=== PATIENT | male | born 1975 | race Two or more races ===

== ENCOUNTER 2020-09-30 07:37 | Emergency (ER) | payer SELFPAY ==
[2020-09-30] MEDS ORDERED: Ketorolac 15 MG/ML SDV IVPUSH ONE (08:09)
[2020-09-30] MEDS ORDERED: Sodium Chloride 0.9% 1,000 ML IV ONE (08:09)
[2020-09-30] MEDS ORDERED: Ondansetron 4 MG/2 ML SDV IVPUSH ONE (08:09)
--- NOTE | 2020-09-30 08:12 | EDM.PDOC ---
ED HPI GENERAL MEDICAL PROBLEM - General Chief Complaint: Abdominal Pain Stated Complaint: SIDE PAIN Time Seen by Provider: 09/30/20 07:49 - History of Present Illness INITIAL COMMENTS - FREE TEXT/NARRATIVE: 45-year-old male presents to the emergency department complaining of of right- sided abdominal pain. Patient has had kidney stones 2-3 times in the past. The pain started this morning. Nausea and vomiting. No diarrhea. No fevers. No cough or productive sputum. No Covid contacts. Moderate discomfort without exacerbating or alleviating factors. RUQ Pain Score (Numeric/FACES): 6 - Related Data Allergies Allergy/AdvReac Type Severity Reaction Status Date / Time No Known Allergies Allergy Verified 09/30/20 07:59 Home Meds: Home Meds Acetaminophen/oxyCODONE [Percocet 325-5 MG] 1 each PO Q6HR #12 tab 09/30/20 [Rx] Ibuprofen [Motrin] 600 mg PO Q6H PRN #20 tab 09/30/20 [Rx] Ondansetron [Zofran ODT] 4 mg PO Q6H PRN #15 tab.dis 09/30/20 [Rx] Tamsulosin HCl [Flomax] 0.4 mg PO DAILY #10 cap.er.24h 09/30/20 [Rx] Past Medical History - Past Health History Medical/Surgical History: Denies Medical/Surgical History HEENT History: Reports: None Cardiovascular History: Reports: None Respiratory History: Reports: None Gastrointestinal History: Reports: None Genitourinary History: Reports: None Musculoskeletal History: Reports: None Neurological History: Reports: None Psychiatric History: Reports: None Endocrine/Metabolic History: Reports: None Hematologic History: Reports: None Immunologic History: Reports: None Oncologic (Cancer) History: Reports: None Dermatologic History: Reports: None - Infectious Disease History Infectious Disease History: Reports: None - Past Surgical History Head Surgeries/Procedures: Reports: None Social & Family History - Family History Family Medical History: No Pertinent Family History - Tobacco Use Tobacco Use Status *Q: Never Tobacco User - Recreational Drug Use Recreational Drug Use: No ED ROS GENERAL - Review of Systems Review Of Systems: See Below Constitutional: Denies: Fever Respiratory: Denies: Shortness of Breath, Cough Cardiovascular: Denies: Chest Pain GI/Abdominal: Reports: Abdominal Pain, Vomiting : Denies: Dysuria Skin: Denies: Rash Neurological: Reports: No Symptoms Hematologic/Lymphatic: Reports: No Symptoms ED EXAM, GENERAL - Physical Exam Exam: See Below Free Text/Narrative:: CONSTITUTIONAL: well appearing in no acute distress SKIN: dry, and intact without rash HENT: Normocephalic, atraumatic, NECK: normal range of motion PULMONARY: normal chest rise and fall, no respiratory distress or stridor Abdominal: Patient points to the right mid abdomen where the pain is but there is no marked reproducible tenderness. No flank tenderness NEUROLOGIC: normal speech, moves all extremities, grossly non-focal MUSCULOSKELETAL: no gross deformities, atraumatic PSYCHIATRIC: normal mood and affect Course - Vital Signs Text/Narrative:: Differential diagnosis: Kidney stone, appendicitis, acute cholecystitis, pancreatitis, pyelonephritis, other Presents with abdominal pain. He is evidence of a distal small UVJ stone. No evidence of infection. The base is somewhat elevated. There is no CT evidence of pancreatitis in the patient's pain distribution is more consistent with kidney stone which is objectively seen on CT scan. Patient had this discussed and he can have repeat levels tested as an outpatient. Otherwise Flomax with pain management antinausea medications and hopefully the proximal pass on its own given the size and location. Patient instructed they will need to follow-up with urologist if there is any lack of the stone passing on its own and or fevers develop Last Recorded V/S: Last Vital Signs Temp 35.9 C L 09/30/20 07:59 Pulse 71 09/30/20 10:54 Resp 20 09/30/20 07:59 BP 160/78 H 09/30/20 10:54 Pulse Ox 98 09/30/20 10:54 - Orders/Labs/Meds Labs: Laboratory Tests 09/30/20 09/30/20 09/30/20 Range/Units 08:00 08:00 08:39 WBC 7.33 (4.0-11.0) K/uL RBC 5.29 (4.50-5.90) M/uL Hgb 15.9 (13.0-17.0) g/dL Hct 46.5 (38.0-50.0) % MCV 87.9 (80.0-98.0) fL MCH 30.1 (27.0-32.0) pg MCHC 34.2 (31.0-37.0) g/dL RDW Std Deviation 40.8 (28.0-62.0) fl RDW Coeff of Caitlin 13 (11.0-15.0) % Plt Count 156 (150-400) K/uL MPV 9.70 (7.40-12.00) fL Neut % (Auto) 78.9 (48.0-80.0) % Lymph % (Auto) 14.5 L (16.0-40.0) % Major % (Auto) 5.5 (0.0-15.0) % Eos % (Auto) 0.8 (0.0-7.0) % Baso % (Auto) 0.3 (0.0-1.5) % Neut # (Auto) 5.8 H (1.4-5.7) K/uL Lymph # (Auto) 1.1 (0.6-2.4) K/uL Major # (Auto) 0.4 (0.0-0.8) K/uL Eos # (Auto) 0.1 (0.0-0.7) K/uL Baso # (Auto) 0.0 (0.0-0.1) K/uL Nucleated RBC % 0.0 /100WBC Nucleated RBCs # 0 K/uL Sodium 138 (136-148) mmol/L Potassium 4.0 (3.5-5.1) mmol/L Chloride 103 (98-107) mmol/L Carbon Dioxide 26.3 (21.0-32.0) mmol/L BUN 17 (7.0-18.0) mg/dL Creatinine 1.4 H (0.8-1.3) mg/dL Est Cr Clr Drug Dosing 74.94 mL/min Estimated GFR (MDRD) 54.8 ml/min Glucose 147 H (74-106) mg/dL Calcium 8.2 L (8.5-10.1) mg/dL Total Bilirubin 1.1 H (0.2-1.0) mg/dL AST 36 (15-37) IU/L ALT 92 H (14-63) IU/L Alkaline Phosphatase 77 (46-116) U/L Total Protein 7.1 (6.4-8.2) g/dL Albumin 4.1 (3.4-5.0) g/dL Globulin 3.0 (2.6-4.0) g/dL Albumin/Globulin Ratio 1.4 (0.9-1.6) Lipase 632 H (73-393) U/L Urine Color YELLOW Urine Appearance CLEAR Urine pH 7.0 (5.0-8.0) Ur Specific [place] 1.015 (1.001-1.035) Urine Protein NEGATIVE (NEGATIVE) mg/dL Urine Glucose (UA) NEGATIVE (NEGATIVE) mg/dL Urine Ketones NEGATIVE (NEGATIVE) mg/dL Urine Occult Blood NEGATIVE (NEGATIVE) Urine Nitrite NEGATIVE (NEGATIVE) Urine Bilirubin NEGATIVE (NEGATIVE) Urine Urobilinogen 0.2 (<2.0) EU/dL Ur Leukocyte Esterase NEGATIVE (NEGATIVE) Meds: Medications Discontinued Medications Generic Name Dose Route Start Last Admin Trade Name Freq PRN Reason Stop Dose Admin Sodium Chloride 1,000 mls @ 999 mls/hr 09/30/20 08:09 09/30/20 08:13 Normal Saline IV 09/30/20 09:09 999 mls/hr .BOLUS ONE Administration Ketorolac Tromethamine 30 mg 09/30/20 08:09 09/30/20 08:21 Ketorolac 15 Mg/Ml Sdv IVPUSH 09/30/20 08:10 Not Given ONETIME ONE Ketorolac Tromethamine 30 mg 09/30/20 08:20 09/30/20 08:21 Ketorolac 30 Mg/Ml Sdv IVPUSH 09/30/20 08:21 30 mg ONETIME ONE Administration Ketorolac Tromethamine Confirm 09/30/20 08:18 09/30/20 09:35 Ketorolac 30 Mg/Ml Sdv Administered 09/30/20 08:19 Not Given Dose 30 mg .ROUTE .STK-MED ONE Ondansetron HCl 4 mg 09/30/20 08:09 09/30/20 08:20 Ondansetron 4 Mg/2 Ml Sdv IVPUSH 09/30/20 08:10 4 mg ONETIME ONE Administration Ondansetron HCl Confirm 09/30/20 08:17 09/30/20 09:35 Ondansetron 4 Mg/2 Ml Sdv Administered 09/30/20 08:18 Not Given Dose 4 mg .ROUTE .STK-MED ONE Departure - Departure Time of Disposition: 11:13 Disposition: Home, Self-Care 01 Condition: Good Clinical Impression: Kidney stone on right side - Discharge Information Prescriptions: Tamsulosin HCl [Flomax] 0.4 mg PO DAILY #10 cap.er.24h Ibuprofen [Motrin] 600 mg PO Q6H PRN #20 tab PRN Reason: Pain Acetaminophen/oxyCODONE [Percocet 325-5 MG] 1 each PO Q6HR #12 tab Ondansetron [Zofran ODT] 4 mg PO Q6H PRN #15 tab.dis PRN Reason: Nausea Instructions: Kidney Stones, [id number] Referrals: PCP,None [Primary Care Provider] - Forms: ED Department Discharge Additional Instructions: Take Flomax to help passage of the stone. Zofran for vomiting. Ibuprofen for pain. You can use the oxycodone acetaminophen for breakthrough pain if you cannot be controlled with ibuprofen. Return for fevers or pain with urination or worsening pain or inability to tolerate fluids. Follow-up with urology in 1 week if symptoms still persist Sepsis Event Note (ED) - Evaluation Sepsis Screening Result: No Definite Risk - Focused Exam Vital Signs: Vital Signs Temp Pulse Resp BP BP Pulse Ox 09/30/20 10:54 71 160/78 H 98 09/30/20 10:21 88 158/80 H 99 09/30/20 09:51 63 158/83 H 97 09/30/20 09:22 65 151/92 H 97 09/30/20 08:52 66 136/94 H 98 09/30/20 08:21 70 145/98 H 100 09/30/20 07:59 35.9 C L 72 20 153/103 H 148/121 H 98
[2020-09-30] MEDS ORDERED: Ondansetron 4 MG/2 ML SDV ONE (08:17)
[2020-09-30] MEDS ORDERED: Ketorolac 30 MG/ML SDV ONE (08:18)
[2020-09-30] MEDS ORDERED: Ketorolac 30 MG/ML SDV IVPUSH ONE (08:20)
[2020-09-30 08:40] LABS: CARBON DIOXIDE,CO2 26.3 mmol/L (21.0-32.0)
--- NOTE | 2020-09-30 10:49 | CT ---
Indication: Abdominal pain Technique: Volumetric multidetector CT images of the abdomen and pelvis were obtained after the administration of intravenous contrast. 75 cc Isovue 370 low osmolar intravenous contrast Comparison: None available. Findings: There is basilar atelectasis versus scar. The liver is normal in attenuation without intrahepatic biliary ductal dilatation. The portal vein is patent. The gallbladder is unremarkable without evidence of radiopaque calculus. There is no significant common biliary ductal dilatation or abrupt cut off. The spleen is normal in enhancement and size. The stomach and duodenum are grossly unremarkable. The pancreas is normal in enhancement without significant atrophy. The adrenal glands are unremarkable. There is right-sided hydronephrosis and hydroureter with a delayed right-sided nephrogram and demonstration of an obstructing calculus in the distal right ureter measuring 3.2 millimeters. Cystic changes of the left kidney is appreciated. There is moderate stool seen throughout the colon with mild fluid filled loops of central small bowel. The appendix is unremarkable. There is no significant mesenteric, retroperitoneal, or pelvic sidewall lymph nodes. The aorta is nonaneurysmal. There is no significant atherosclerotic disease appreciated. The solid pelvic viscera are grossly unremarkable. There is no free fluid or free air. There is a small fat containing umbilical hernia. The lumbar vertebral body heights are grossly maintained with minimal endplate Schmorl`s defects without acute osseous abnormality. Impression: Right-sided hydronephrosis and hydroureter with a 3.2 millimeter calculus in the distal right ureter just above the ureteropelvic junction. Mild nonspecific fluid-filled loops of small bowel which may represent mild ileus. Otherwise, no acute intra-abdominal abnormality. Please note that all CT scans at this facility use dose modulation, iterative reconstruction, and/or weight-based dosing when appropriate to reduce radiation dose to as low as reasonably achievable. Dictated by Doug Madrigal MD @ 09/30/2020 10:48:[address] Doug Madrigal @ Sep 30 2020 10:48AM
[2020-09-30] MEDS ORDERED: Iopamidol 755 MG/ML 500 ML Multipack Bottle IVPUSH STA (12:13)
== END 2020-09-30 11:38 | disposition home or self-care (01) ==
LOC: MW.ED 07:37
DX: N13.2 Hydronephrosis with renal and ureteral calculous obstruction (principal)
CPT/HCPCS: 36415; 74177; 80053; 81003; 83690; 85025; 96374; 96375; 99284; J1885; J2405; J7030; Q9967

== ENCOUNTER 2020-10-28 13:23 | Emergency (ER) | payer SELFPAY ==
[2020-10-28] MEDS ORDERED: Octyl 2-Cyanoacrylate 1 APPLIC TUBE TOP ONE (15:35)
[2020-10-28] MEDS ORDERED: Diphtheria,Pertussis(Acell),Tetanus Vaccine 0.5 ML Syringe IM ONE (15:40)
--- NOTE | 2020-10-28 15:41 | EDM.PDOC ---
ED HPI GENERAL MEDICAL PROBLEM - General Chief Complaint: Laceration Stated Complaint: CUT LEFT HAND Time Seen by Provider: 10/28/20 14:59 Source of Information: Reports: Patient History Limitations: Reports: Language Barrier - History of Present Illness INITIAL COMMENTS - FREE TEXT/NARRATIVE: Patient 45-year-old male today for a cut to the palm of his left hand with a knife that he had while working. The cut seems to be superficial would not require sutures. Patient has good range of motion denies any pain. Patient is unsure of his tetanus status. Patient has no other complaints. Left Hand Pain Score (Numeric/FACES): 2 - Related Data Allergies Allergy/AdvReac Type Severity Reaction Status Date / Time No Known Allergies Allergy Verified 09/30/20 07:59 Home Meds: Home Meds Acetaminophen/HYDROcodone [HYDROcodone-Acetaminophen 5-325 MG *] 1 tab PO Q6H PRN #10 each 09/30/20 [Rx] Ibuprofen [Motrin] 600 mg PO Q6H PRN #20 tab 09/30/20 [Rx] Ondansetron [Zofran ODT] 4 mg PO Q6H PRN #15 tab.dis 09/30/20 [Rx] Tamsulosin HCl [Flomax] 0.4 mg PO DAILY #10 cap.er.24h 09/30/20 [Rx] Past Medical History - Past Health History Medical/Surgical History: Denies Medical/Surgical History HEENT History: Reports: None Cardiovascular History: Reports: None Respiratory History: Reports: None Gastrointestinal History: Reports: None Genitourinary History: Reports: None Musculoskeletal History: Reports: None Neurological History: Reports: None Psychiatric History: Reports: None Endocrine/Metabolic History: Reports: None Hematologic History: Reports: None Immunologic History: Reports: None Oncologic (Cancer) History: Reports: None Dermatologic History: Reports: None - Infectious Disease History Infectious Disease History: Reports: None - Past Surgical History Head Surgeries/Procedures: Reports: None Social & Family History - Family History Family Medical History: No Pertinent Family History - Tobacco Use Tobacco Use Status *Q: Never Tobacco User - Caffeine Use Caffeine Use: Reports: None - Recreational Drug Use Recreational Drug Use: No ED ROS GENERAL - Review of Systems Review Of Systems: See Below Constitutional: Reports: No Symptoms HEENT: Reports: No Symptoms Respiratory: Reports: No Symptoms Cardiovascular: Reports: No Symptoms Endocrine: Reports: No Symptoms GI/Abdominal: Reports: No Symptoms : Reports: No Symptoms Musculoskeletal: Reports: No Symptoms Skin: Reports: Other (Laceration) Neurological: Reports: No Symptoms Psychiatric: Reports: No Symptoms Hematologic/Lymphatic: Reports: No Symptoms Immunologic: Reports: No Symptoms ED EXAM, SKIN/RASH Exam: See Below Exam Limited By: No Limitations General Appearance: Alert, WD/WN, No Apparent Distress Head: Atraumatic Respiratory/Chest: No Respiratory Distress Cardiovascular: Normal Peripheral Pulses GI/Abdominal: Normal Bowel Sounds Extremities: Normal Inspection, Other (She has a superficial laceration to the palm of left hand does not require sutures will likely apply small amount of Dermabond) Neurological: Alert, Oriented ED SKIN PROCEDURES - Laceration/Wound Repair Hand Appearance: Superficial Distal NVT: Neuro & Vascular Intact Closed with: Dermabond Lac/Wound length In cm: 2 Course - Vital Signs Last Recorded V/S: Last Vital Signs Temp 97.3 F 10/28/20 14:01 Pulse 70 10/28/20 14:01 Resp 18 10/28/20 14:01 BP 152/84 H 10/28/20 14:01 Pulse Ox 98 10/28/20 14:01 Departure - Departure Time of Disposition: 15:39 Disposition: Home, Self-Care 01 Condition: Good Clinical Impression: Superficial laceration of hand - Discharge Information *PRESCRIPTION DRUG MONITORING PROGRAM REVIEWED*: Not Applicable *COPY OF PRESCRIPTION DRUG MONITORING REPORT IN PATIENT IRAM: Not Applicable Instructions: Nonsutured Laceration Care Referrals: PCP,None [Primary Care Provider] - Additional Instructions: The following information is given to patients seen in the emergency department who are being discharged to home. This information is to outline your options for follow-up care. We provide all patients seen in our emergency department with a follow-up referral. The need for follow-up, as well as the timing and circumstances, are variable depending upon the specifics of your emergency department visit. If you don't have a primary care physician on staff, we will provide you with a referral. We always advise you to contact your personal physician following an emergency department visit to inform them of the circumstance of the visit and for follow-up with them and/or the need for any referrals to a consulting specialist. The emergency department will also refer you to a specialist when appropriate. This referral assures that you have the opportunity for follow-up care with a specialist. All of these measure are taken in an effort to provide you with optimal care, which includes your follow-up. Under all circumstances we always encourage you to contact your private physician who remains a resource for coordinating your care. When calling for follow-up care, please make the office aware that this follow-up is from your recent emergency room visit. If for any reason you are refused follow-up, please contact the [facility] Emergency Department at and asked to speak to the emergency department charge nurse. Please follow up with your primary care physician. If you do not have a primary care physician, see below: [facility] [address] [place] [id number] [facility] [address] [place] [address] Lo vieron hoy por raf laceracin en la mano izquierda que no requiri suturas. Aplicamos Dermabond. Intente mantener la mano seca onur las primeras 2 horas y despus de lo cual contine trabajando es normal. Si tiene otros signos o sntomas preocupantes, regrese al servicio de urgencias. You were seen today for a laceration to your left hand did not require any sutures. We applied Dermabond. Please try to keep the hand dry for the first 2 hours and after which you continue work is normal. If you have any other concerning signs or symptoms please return to the ED. Sepsis Event Note (ED) - Evaluation Sepsis Screening Result: No Definite Risk - Focused Exam Vital Signs: Vital Signs Temp Pulse Resp BP Pulse Ox 10/28/20 14:01 97.3 F 70 18 152/84 H 98 - Assessment/Plan Plan: Patient is a 45-year-old male presents today for a superficial laceration to his left hand that would not require sutures we will apply small amount of Dermabond and discharge patient home. Patient tetanus status addressed as well.
== END 2020-10-28 16:24 | disposition home or self-care (01) ==
LOC: MW.ED 13:23
DX: S61.412A Laceration without foreign body of left hand, initial encounter (principal); W26.0XXA Contact with knife, initial encounter
CPT/HCPCS: 12001; 99282; A9270